=== PATIENT | female | born 1960 | race Two or more races ===

== ENCOUNTER 2016-11-11 08:47 | Outpatient (CLI) | payer BC ==
[2016-11-11 09:50] LABS: BASOPHILS % (AUTO) 0.4 % (0.0-2.0); DIFF TOTAL % 100 %; EOSINOPHILS # (AUTO) 0.2 /CMM (0.0-0.7); EOSINOPHILS % (AUTO) 3.1 % (0.0-6.0); HEMATOCRIT 42 % (33-45); HEMOGLOBIN 13.9 g/dL (11.5-14.8); LYMPHOCYTES # (AUTO) 2.4 /CMM (0.8-4.8); LYMPHOCYTES % (AUTO) 38.5 % (20.0-44.0); MEAN CORPUSCULAR HEMOGLOBIN 29 PG (26.0-33.0); MEAN CORPUSCULAR HGB CONC 34 g/dl (31.0-36.0); MEAN CORPUSCULAR VOLUME 85 fL (82-100); MONOCYTES # (AUTO) 0.5 /CMM (0.1-1.30); MONOCYTES % (AUTO) 7.2 % (2.0-12.0); NEUTROPHILS # (AUTO) 3.2 /CMM (1.8-8.9); NEUTROPHILS % (AUTO) 50.8 % (43.0-81.0); PLATELET COUNT (AUTO) 211 /CMM (150-450); WHITE BLOOD COUNT (AUTO) 6.3 K/uL (4.3-11.0)
[2016-11-11 10:19] LABS: ALBUMIN 3.8 g/dL (3.4-5.0); BILIRUBIN,TOTAL 0.3 mg/dL (0.2-1.0); CALCIUM, SERUM 8.5 mg/dL (8.5-10.1); CREATININE 0.8 mg/dL (0.6-1.3); POTASSIUM 4.3 mmol/L (3.5-5.1); THYROID STIMULATING HORMONE 1.906 uIU/mL (0.358-3.74); TOTAL PROTEIN, SERUM 7.4 g/dL (6.4-8.2)
== END 2016-11-11 23:59 | disposition home or self-care (01) ==
LOC: US 08:47
PROVIDERS: ATTEND Family Medicine
DX: E03.9 Hypothyroidism, unspecified (principal); E55.9 Vitamin D deficiency, unspecified
CPT/HCPCS: 36415; 76536-TC; 80053-TC; 80061-TC; 82306; 84439-TC; 84443-TC; 85025-TC

== ENCOUNTER 2016-11-30 10:22 | Outpatient (CLI) | payer BC ==
[2016-12-01 08:26] LABS: THYROID PEROXIDASE (TPO) AB 10 IU/mL (0-34)
[2016-12-01 09:42] LABS: *THYROGLOBULIN 1.6 IU/mL (0.0-0.9)
== END 2016-11-30 23:59 | disposition home or self-care (01) ==
LOC: LAB 10:22
PROVIDERS: ATTEND Family Medicine
DX: E04.1 Nontoxic single thyroid nodule (principal)
CPT/HCPCS: 36415; 86376

== ENCOUNTER 2017-06-21 10:01 | Outpatient (CLI) | payer BC, OTHER ==
[2017-06-24 00:09] LABS: *NEISSERIA GONORRHOEAE NAA Negative (Negative); CHLAMYDIA TRACHOMATIS NAA Negative (Negative)
== END 2017-06-21 23:59 | disposition home or self-care (01) ==
LOC: LAB 10:01
PROVIDERS: ATTEND Family Medicine
DX: Z11.3 Encounter for screening for infections with a predominantly sexual mode of transmission (principal); Z12.72 Encounter for screening for malignant neoplasm of vagina
CPT/HCPCS: 87491; 87591; 88142

== ENCOUNTER 2019-10-25 11:58 | Outpatient (CLI) | payer BC, OTHER | END 2019-10-25 23:59 | disposition home or self-care (01) | LOC: MRI 11:58 | PROVIDERS: ATTEND Family Medicine | DX: M17.12 Unilateral primary osteoarthritis, left knee (principal); M94.262 Chondromalacia, left knee; M25.762 Osteophyte, left knee | CPT/HCPCS: 73721-TC ==

== ENCOUNTER 2020-05-29 16:20 | Outpatient (CLI) | payer BC, OTHER | END 2020-05-29 23:59 | disposition home or self-care (01) | LOC: LAB 16:20 | PROVIDERS: ATTEND Specialist | DX: Z01.812 Encounter for preprocedural laboratory examination (principal); Z20.828 Contact with and (suspected) exposure to other viral communicable diseases | CPT/HCPCS: 87426; C9803 ==

== ENCOUNTER 2020-06-03 05:05 | Day surgery (SDC) | payer BC, OTHER ==
[2020-05-28 08:38] LABS: BASOPHILS # (AUTO) 0.1 /CMM (0.0-0.2); BASOPHILS % (AUTO) 0.9 % (0.0-2.0); EOSINOPHILS % (AUTO) 2.3 % (0.0-6.0); HEMATOCRIT 43 % (33-45); LYMPHOCYTES # (AUTO) 2.1 /CMM (0.8-4.8); LYMPHOCYTES % (AUTO) 33.1 % (20.0-44.0); MEAN CORPUSCULAR HGB CONC 33 g/dl (31.0-36.0); MEAN CORPUSCULAR VOLUME 88 fL (82-100); MONOCYTES # (AUTO) 0.5 /CMM (0.1-1.30); MONOCYTES % (AUTO) 7.9 % (2.0-12.0); NEUTROPHILS # (AUTO) 3.5 /CMM (1.8-8.9); NEUTROPHILS % (AUTO) 55.8 % (43.0-81.0); PLATELET COUNT (AUTO) 228 /CMM (150-450); WHITE BLOOD COUNT (AUTO) 6.3 K/uL (4.3-11.0)
[2020-05-28 09:01] LABS: APPEARANCE,URINE CLEAR (CLEAR); BILIRUBIN,URINE NEGATIVE (NEGATIVE); BLOOD, URINE TRACE-INTA Ery/uL (NEGATIVE); COLOR,URINE YELLOW (YELLOW); KETONES,URINE NEGATIVE (NEGATIVE); LEUKOCYTE ESTERASE ,URINE NEGATIVE (NEGATIVE); NITRITE, URINE NEGATIVE (NEGATIVE); PROTEIN,URINE NEGATIVE (NEGATIVE); UGLUCOSE NEGATIVE (NEGATIVE); UROBILINOGEN,URINE 0.2 EU/dL (0.2)
[2020-05-28 09:02] LABS: ALBUMIN 3.9 g/dL (3.4-5.0); BILIRUBIN,TOTAL 0.4 mg/dL (0.2-1.0); CALCIUM, SERUM 8.7 mg/dL (8.5-10.1); CREATININE 0.8 mg/dL (0.6-1.3); POTASSIUM 4.7 mmol/L (3.5-5.1); TOTAL PROTEIN, SERUM 7.6 g/dL (6.4-8.2)
[2020-05-28 09:09] LABS: RBC,URINE 0-2 /HPF (0-2)
[2020-05-28 09:10] LABS: BACTERIA,URINE None seen /HPF (None Seen); SQUAMOUS EPITHELIAL CELL,UR Few /HPF (None Seen); WBC,URINE NONE SEEN /HPF (0-3)
[~2020-06-03] VITALS: Ht 157.5 cm; Wt 70.3 kg
--- NOTE | 2020-06-03 05:25 | NUR ---
TONY RECEIVED FROM HOME PATIENT FOR SURGERY TODAY OF LEFT KNEE. A/O X4, LEFT KNEE PAIN ONLY WHEN MOVING. NPO STATUS, FULLY ADMITTED. CONSENTS SIGNED. RIGHT AC 20 GAUGE INSERTED WITH GOOD BLOOD RETURN. PATIENT AWARE OF PROCEDURE, PRE AND POST OP TEACHING DONE. APPEARS TO UNDERSTAND.
[2020-06-03 06:00] VITALS: BP 115/71
--- NOTE | 2020-06-03 06:54 | NUR ---
MSRN SEEN BY ANESTHESIOLOGISTS.
[2020-06-03 06:57] VITALS: BP 115/71
[2020-06-03 07:21] VITALS: BP 115/71
--- NOTE | 2020-06-03 07:42 | NUR ---
RN NOTES PATIENT WAS PICKED UP BY 2 O.R STAFF FOR PROCEDURE, NO SIGNS OF DISTRESS NOTED. CONSENT SIGNED, CHECKLIST DONE.
[2020-06-03] MEDS ORDERED: methylPREDNISolone ACETATE 80 MG/ML VIAL ONE (08:56)
[2020-06-03] MEDS ORDERED: LIDOCAINE HCL/MPF 1% 30 ML VIAL IJ ONE (08:56)
[2020-06-03] MEDS ORDERED: KETOROLAC TROMETHAMINE INJ 30 MG/ML VIAL ONE (09:22)
[2020-06-03] MEDS ORDERED: FENTANYL PF 100MCG/2ML AMPUL ONE (09:23)
--- NOTE | 2020-06-03 10:20 | NUR ---
RN NOTES PATIENT CAME BACK FROM SURGERY VIA HOSPITAL BED, A/O X4. ON OXYGEN 2LPM VIA NC, NO COMPLAIN OF PAIN AT THIS TIME. SAFETY MEASURES IN PLACE, PER MD TO DC WHEN COMFORTABLY. WILL CONTINUE TO MONITOR.
[2020-06-03] MEDS ORDERED: LEVO50TA8 PO (10:35)
[2020-06-03] MEDS ORDERED: IBUP-1957 PO (10:35)
[2020-06-03] MEDS ORDERED: HYDR-3980 PO (10:35)
--- NOTE | 2020-06-03 14:24 | NUR ---
SALES OFFICE ASSISTANT NOTES PATIENT DISCHARGE IN STABLE CONDITION. A/O X4, ABLE TO MAKE NEEDS KNOWN. V/S TAKEN, STABLE AND RECORDED. IV ACCESS REMOVED AND APPLIED PRESSURE DRESSINGS. NAME ARM BAND REMOVED. ALL BELONGINGS SIGNED AND CHECKED. HEALTH TEACHINGS/DISCHARGE INSTRUCTION GIVEN AND VERBALIZED UNDERSTANDING. PATIENT LEFT UNIT VIA WHEELCHAIR WITH NO SIGNS OF DISTRESS. PATIENT ASSISTED TO THE LOBBY AND PICKED UP BY DAUGHTER(NEHAL). CHARGE NURSE AWARE OF DISCHARGED.
== END 2020-06-03 18:00 | disposition home or self-care (01) ==
LOC: DS 05:05 → UNDOADMIN 05:06 → MED 05:06 → UNDODISIN 14:15 → DS 18:00
PROVIDERS: ATTEND Specialist
DX: S83.282A Other tear of lateral meniscus, current injury, left knee, initial encounter (principal); S83.242A Other tear of medial meniscus, current injury, left knee, initial encounter; M94.262 Chondromalacia, left knee; I10 Essential (primary) hypertension; Z79.899 Other long term (current) drug therapy; X58.XXXA Exposure to other specified factors, initial encounter; Y93.89 Activity, other specified; Y92.89 Other specified places as the place of occurrence of the external cause; Y99.8 Other external cause status
CPT/HCPCS: 29880; 36415 ×2; 80053; 81001; 85025; 85730; 86850; 87081; A4217; A6253; J1040; J1885; J3010; J3490; 81000-TC; G0378

== ENCOUNTER 2020-07-24 09:21 | Outpatient (CLI) | payer BC, OTHER ==
[~2020-07-24 09:21] MED LIST: HYDR-3980 PO; IBUP-1957 PO; LEVO50TA8 PO
[2020-07-24 10:09] LABS: APPEARANCE,URINE CLEAR (CLEAR); BILIRUBIN,URINE SMALL (NEGATIVE); BLOOD, URINE NEGATIVE Ery/uL (NEGATIVE); COLOR,URINE RED (YELLOW); KETONES,URINE NEGATIVE (NEGATIVE); LEUKOCYTE ESTERASE ,URINE NEGATIVE (NEGATIVE); NITRITE, URINE POSITIVE (NEGATIVE); PROTEIN,URINE 30 mg/dl (NEGATIVE); UGLUCOSE 250 MG/DL mg/dL (NEGATIVE)
[2020-07-24 13:10] LABS: BACTERIA,URINE Rare /HPF (None Seen); RBC,URINE NONE SEEN /HPF (0-2); WBC,URINE 0-2 /HPF (0-3)
[2020-07-24 13:11] LABS: SQUAMOUS EPITHELIAL CELL,UR Few /HPF (None Seen)
== END 2020-07-24 23:59 | disposition home or self-care (01) ==
LOC: LAB 09:21
PROVIDERS: ATTEND Family Medicine
DX: N39.0 Urinary tract infection, site not specified (principal)
CPT/HCPCS: 81000-TC; 87086-TC

== ENCOUNTER 2020-09-17 09:27 | Outpatient (CLI) | payer BC, OTHER ==
[2020-09-17 11:35] LABS: BASOPHILS % (AUTO) 0.7 % (0.0-2.0); BILIRUBIN,URINE NEGATIVE (NEGATIVE); BLOOD, URINE TRACE-INTA Ery/uL (NEGATIVE); COLOR,URINE YELLOW (YELLOW); EOSINOPHILS % (AUTO) 1.8 % (0.0-6.0); HEMATOCRIT 42 % (33-45); HEMOGLOBIN 13.9 g/dL (11.5-14.8); LEUKOCYTE ESTERASE ,URINE NEGATIVE (NEGATIVE); LYMPHOCYTES # (AUTO) 2.1 /CMM (0.8-4.8); LYMPHOCYTES % (AUTO) 33.8 % (20.0-44.0); MEAN CORPUSCULAR HGB CONC 33 g/dl (31.0-36.0); MEAN CORPUSCULAR VOLUME 88 fL (82-100); MONOCYTES # (AUTO) 0.4 /CMM (0.1-1.30); MONOCYTES % (AUTO) 7.1 % (2.0-12.0); NEUTROPHILS # (AUTO) 3.6 /CMM (1.8-8.9); NEUTROPHILS % (AUTO) 56.6 % (43.0-81.0); NITRITE, URINE NEGATIVE (NEGATIVE); PLATELET COUNT (AUTO) 216 /CMM (150-450); PROTEIN,URINE NEGATIVE (NEGATIVE); RED BLOOD CELL COUNT(AUTO) 4.78 MIL/uL (4.0-5.2); UGLUCOSE NEGATIVE (NEGATIVE); UROBILINOGEN,URINE 0.2 EU/dL (0.2); WHITE BLOOD COUNT (AUTO) 6.3 K/uL (4.3-11.0)
[2020-09-17 11:59] LABS: RBC,URINE 0-2 /HPF (0-2); WBC,URINE NONE SEEN /HPF (0-3)
[2020-09-17 12:00] LABS: BACTERIA,URINE None seen /HPF (None Seen); SQUAMOUS EPITHELIAL CELL,UR Few /HPF (None Seen)
[2020-09-17 12:12] LABS: ALBUMIN 3.9 g/dL (3.4-5.0); BILIRUBIN,TOTAL 0.4 mg/dL (0.2-1.0); CALCIUM, SERUM 8.8 mg/dL (8.5-10.1); CREATININE 0.7 mg/dL (0.6-1.3); POTASSIUM 4.2 mmol/L (3.5-5.1); TOTAL PROTEIN, SERUM 7.5 g/dL (6.4-8.2)
[2020-09-17 12:15] LABS: THYROID STIMULATING HORMONE 1.477 uIU/mL (0.358-3.74)
== END 2020-09-17 23:59 | disposition home or self-care (01) ==
LOC: LAB 09:27
PROVIDERS: ATTEND Family Medicine
DX: E11.9 Type 2 diabetes mellitus without complications (principal); E03.9 Hypothyroidism, unspecified; E78.00 Pure hypercholesterolemia, unspecified; R03.0 Elevated blood-pressure reading, without diagnosis of hypertension; Z79.899 Other long term (current) drug therapy
CPT/HCPCS: 36415; 80053-TC; 80061-TC; 81001; 82306; 84439-TC; 84443-TC; 85025-TC

== ENCOUNTER 2020-11-18 10:01 | Outpatient (CLI) | payer BC, OTHER ==
[2020-11-18 11:32] LABS: COLOR,URINE LIGHT YELLOW (YELLOW); PH,URINE 6.5 (5.0-8.0)
[2020-11-18 11:43] LABS: BILIRUBIN,URINE NEGATIVE (NEGATIVE); PROTEIN,URINE NEGATIVE (NEGATIVE); UGLUCOSE NEGATIVE (NEGATIVE)
[2020-11-18 11:44] LABS: LEUKOCYTE ESTERASE ,URINE NEGATIVE (NEGATIVE); NITRITE, URINE NEGATIVE (NEGATIVE); UROBILINOGEN,URINE 0.2 EU/dL (0.2)
== END 2020-11-18 23:59 | disposition home or self-care (01) ==
LOC: LAB 10:01
PROVIDERS: ATTEND Family Medicine
DX: R31.9 Hematuria, unspecified (principal)
CPT/HCPCS: 87086-TC

== ENCOUNTER 2020-11-26 10:34 | Outpatient (CLI) | payer BC, OTHER ==
[2020-11-26 11:53] LABS: CREATININE 0.8 mg/dL (0.6-1.3)
== END 2020-11-26 23:59 | disposition home or self-care (01) ==
LOC: LAB 10:34
PROVIDERS: ATTEND Family Medicine
DX: M25.561 Pain in right knee (principal); M25.562 Pain in left knee
CPT/HCPCS: 36415; 82565-TC; 84520-TC

== ENCOUNTER 2020-11-27 10:32 | Outpatient (CLI) | payer BC, OTHER ==
[2020-11-27] MEDS ORDERED: GADOTERATE MEGLUMINE 10 MMOL/20 ML VIAL IV ONE (10:33)
== END 2020-11-27 23:59 | disposition home or self-care (01) ==
LOC: MRI 10:32
PROVIDERS: ATTEND Family Medicine
DX: M17.0 Bilateral primary osteoarthritis of knee (principal); M25.462 Effusion, left knee
CPT/HCPCS: 73723 ×2; A9575

== ENCOUNTER 2021-05-06 08:20 | Outpatient (CLI) | payer BC, OTHER ==
[2021-05-06 09:11] LABS: BASOPHILS % (AUTO) 0.8 % (0.0-2.0); HEMATOCRIT 41 % (33-45); HEMOGLOBIN 13.8 g/dL (11.5-14.8); LYMPHOCYTES # (AUTO) 2.3 K/uL (0.8-4.8); LYMPHOCYTES % (AUTO) 40.3 % (20.0-44.0); MEAN CORPUSCULAR HGB CONC 34 g/dl (31.0-36.0); MEAN CORPUSCULAR VOLUME 88 fL (82-100); MONOCYTES # (AUTO) 0.4 K/uL (0.1-1.30); MONOCYTES % (AUTO) 7.3 % (2.0-12.0); NEUTROPHILS # (AUTO) 2.9 K/uL (1.8-8.9); NEUTROPHILS % (AUTO) 49.6 % (43.0-81.0); PLATELET COUNT (AUTO) 218 K/uL (150-450); RED BLOOD CELL COUNT(AUTO) 4.68 MIL/uL (4.0-5.2); WHITE BLOOD COUNT (AUTO) 5.8 K/uL (4.3-11.0)
[2021-05-06 09:14] LABS: BILIRUBIN,URINE NEGATIVE (NEGATIVE); LEUKOCYTE ESTERASE ,URINE NEGATIVE (NEGATIVE); NITRITE, URINE NEGATIVE (NEGATIVE); PROTEIN,URINE NEGATIVE (NEGATIVE); UGLUCOSE NEGATIVE (NEGATIVE); UROBILINOGEN,URINE 0.2 EU/dL (0.2)
[2021-05-06 09:22] LABS: BILIRUBIN,TOTAL 0.4 mg/dL (0.2-1.0); CALCIUM, SERUM 8.4 mg/dL (8.5-10.1); COLOR,URINE STRAW (YELLOW); CREATININE 0.7 mg/dL (0.6-1.3); POTASSIUM 4.1 mmol/L (3.5-5.1); TOTAL PROTEIN, SERUM 7.7 g/dL (6.4-8.2)
[2021-05-06 09:28] LABS: BACTERIA,URINE Rare /HPF (None Seen); RBC,URINE 0-2 /HPF (0-2); SQUAMOUS EPITHELIAL CELL,UR Rare /HPF (None Seen); WBC,URINE 0-2 /HPF (0-3)
[2021-05-06 09:36] LABS: THYROID STIMULATING HORMONE 1.848 uIU/mL (0.358-3.74)
== END 2021-05-06 23:59 | disposition home or self-care (01) ==
LOC: LAB 08:20
PROVIDERS: ATTEND Family Medicine
DX: E03.9 Hypothyroidism, unspecified (principal); Z00.01 Encounter for general adult medical examination with abnormal findings; Z79.899 Other long term (current) drug therapy
CPT/HCPCS: 36415; 80053-TC; 80061-TC; 81001; 82306; 84439-TC; 84443-TC; 85025-TC

== ENCOUNTER 2021-09-06 14:04 | Outpatient (CLI) | payer BC, OTHER ==
[2021-09-06 15:44] LABS: BASOPHILS # (AUTO) 0.1 K/uL (0.0-0.2); BASOPHILS % (AUTO) 0.8 % (0.0-2.0); BILIRUBIN,URINE NEGATIVE (NEGATIVE); COLOR,URINE YELLOW (YELLOW); EOSINOPHILS % (AUTO) 3.4 % (0.0-6.0); HEMATOCRIT 41 % (33-45); HEMOGLOBIN 13.8 g/dL (11.5-14.8); LEUKOCYTE ESTERASE ,URINE NEGATIVE (NEGATIVE); LYMPHOCYTES # (AUTO) 2.7 K/uL (0.8-4.8); LYMPHOCYTES % (AUTO) 35.6 % (20.0-44.0); MEAN CORPUSCULAR HGB CONC 34 g/dl (31.0-36.0); MEAN CORPUSCULAR VOLUME 88 fL (82-100); MONOCYTES # (AUTO) 0.5 K/uL (0.1-1.30); MONOCYTES % (AUTO) 6.9 % (2.0-12.0); NEUTROPHILS # (AUTO) 4.1 K/uL (1.8-8.9); NEUTROPHILS % (AUTO) 53.3 % (43.0-81.0); NITRITE, URINE NEGATIVE (NEGATIVE); PH,URINE 6.5 (5.0-8.0); PLATELET COUNT (AUTO) 220 K/uL (150-450); PROTEIN,URINE NEGATIVE (NEGATIVE); RED BLOOD CELL COUNT(AUTO) 4.67 MIL/uL (4.0-5.2); UGLUCOSE NEGATIVE (NEGATIVE); UROBILINOGEN,URINE 0.2 EU/dL (0.2); WHITE BLOOD COUNT (AUTO) 7.7 K/uL (4.3-11.0)
[2021-09-06 16:12] LABS: ALBUMIN 3.9 g/dL (3.4-5.0); BILIRUBIN,TOTAL 0.3 mg/dL (0.2-1.0); CALCIUM, SERUM 8.5 mg/dL (8.5-10.1); CREATININE 0.8 mg/dL (0.6-1.3); POTASSIUM 3.8 mmol/L (3.5-5.1); TOTAL PROTEIN, SERUM 7.4 g/dL (6.4-8.2)
[2021-09-06 16:33] LABS: BACTERIA,URINE None seen /HPF (None Seen); MUCUS,URINE Few /LPF (None Seen); RBC,URINE 0-2 /HPF (0-2); SQUAMOUS EPITHELIAL CELL,UR 0-2 /HPF (None Seen); WBC,URINE 0-2 /HPF (0-3)
== END 2021-09-06 23:59 | disposition home or self-care (01) ==
LOC: LAB 14:04
PROVIDERS: ATTEND Specialist
DX: Z01.818 Encounter for other preprocedural examination (principal); Z20.822 Contact with and (suspected) exposure to COVID-19; Z51.81 Encounter for therapeutic drug level monitoring
CPT/HCPCS: 36415; 71046; 80053; 81001; 85025; 85730; 87086; C9803; U0003

== ENCOUNTER 2021-09-10 09:46 | Day surgery (SDC) | payer BC, OTHER ==
--- NOTE | 2021-09-10 05:50 | NUR ---
MS RN ADMITTING NOTES PATIENT ARRIVED TO THE UNIT AT APPROXIMATELY 0550. PATIENT WAS ABLE TO WALK INDEPENDENTLY TO HER ROOM. PATIENT WAS ORIENTED TO THE STAFF AND ROOM. PATIENT'S ALERT AND ORIENTED X4. PATIENT'S STABLE ON ROOM AIR. IV ACCESS WILL BE PLACED IN SURGERY. PATIENT'S IN NO ACUTE DISTRESS AT THIS TIME. SAFETY MEASURES IN PLACE: BED LOCKED, SIDE RAILS UPX2, AND CALL LIGHT WITHIN REACH OF THE PATIENT.
--- NOTE | 2021-09-10 06:32 | NUR ---
MS RN NOTES PATIENT WAS TAKEN INTO SURGERY FROM THE UNIT AT APPROXIMATELY THIS TIME. PATIENT WAS IN NO ACUTE DISTRESS AT THE TIME OF TRANSFER.
--- NOTE | 2021-09-10 06:57 | NUR ---
MS RN CLOSING NOTES PATIENT IS CURRENTLY IN SURGERY AT THIS TIME. PATIENT'S ALERT AND ORIENTED X4. PATIENT'S STABLE ON ROOM AIR. IV ACCESS WILL BE PLACED IN SURGERY. PATIENT WAS IN NO ACUTE DISTRESS AT THE TIME OF TRANSFER FOR SURGERY. SAFETY MEASURES IN PLACE: BED LOCKED, SIDE RAILS UP X2, AND CALL LIGHT WITHIN REACH OF THE PATIENT. WILL ENDORSE THE ADMISSION ASSESSMENT AND CARE TO THE DAY SHIFT NURSE.
--- NOTE | 2021-09-10 08:20 | NUR ---
RN NOTES RECEIVED REPORT FROM OR FROM FRANCIS AT 0820 AM.
--- NOTE | 2021-09-10 08:50 | NUR ---
RN OPENING NOTES RECEIVED PATIENT FROM OR S/P RIGHT KNEE ARTHROPLASTY WITH HOSPITAL BED, ONYEDA OR NURSE PRESENT. SHE CHECKED VITAL SIGNS, IT WAS WITHIN NORMAL RANGES. QS=413/77, P=75, O2=99% ROOM AIR, T=99.6. PATIENT ALERT AND ORIENTED TIMES 4. NO PAIN NOTED. NO RESPIRATORY DISTRESS NOTED. NO S/S OF BLEEDING OR DISCOMFORT NOTED. BED LOCKED IN THE LOWEST POSITION. CALL LIGHT AND TABLE WITHIN REACH. ICE PACK ON THE SURGERY SITE. DAUGHTER CALLED GOT REPORT FROM PATIENT. ALL NEEDS ATTENDED. WILL CONTINUE TO MONITOR.
[~2021-09-10 09:46] MED LIST changes: +FAMOTIDINE/PF INJ 20 MG/2 ML VIAL IV ONE; +FENTANYL PF 250MCG/5ML AMPUL ONE; +MIDAZOLAM HCL 2 MG/2ML VIAL ONE
--- NOTE | 2021-09-10 11:40 | NUR ---
CLIP LOADING MACHINE ADJUSTER NOTES DISCHARGE PATIENT IN GOOD CONDITION, VITAL SIGNS NORMAL:HO=850/59, P=82, RR=18, T=98.5. NO PAIN NOTED, NO RESPIRATORY DISTRESS NOTED.PATIENT VERBALIZED UNDERSTANDING FOR INSTRUCTIONS. IV ACCESS REMOVED . NO BLEEDING NOTED. COVERED WITH DRY DRESSING. BELONGINGS ACCOUNTED AND SIGNED FOR. ARM BAND REMOVED. DUNIA WHEELED THE PATIENT TO THE LOBBY . PATIENT LEFT UNIT AT 1140 IN STABLE CONDITION. MD AND CHARGE NURSE AWARE OF THE DISCHARGE.
== END 2021-09-10 23:59 | disposition home or self-care (01) ==
LOC: DS 09:46 → UNDODISIN 11:39 → DS 23:59
PROVIDERS: ATTEND Specialist
DX: S83.231A Complex tear of medial meniscus, current injury, right knee, initial encounter (principal); M94.261 Chondromalacia, right knee; M23.41 Loose body in knee, right knee; I10 Essential (primary) hypertension; E11.9 Type 2 diabetes mellitus without complications; E03.9 Hypothyroidism, unspecified; E78.5 Hyperlipidemia, unspecified; E66.01 Morbid (severe) obesity due to excess calories; Z98.890 Other specified postprocedural states; Z79.899 Other long term (current) drug therapy
CPT/HCPCS: 20610; 29881; 87081; A4217; A6253; J0690; J2250; J2405; J2704; J2765; J3010; J3490 ×2; J7030; G0378

== ENCOUNTER 2024-09-26 07:41 | Day surgery (SDC) | payer BC ==
[~2024-09-26 07:41] MED LIST changes: -FAMOTIDINE/PF INJ 20 MG/2 ML VIAL IV ONE; -FENTANYL PF 250MCG/5ML AMPUL ONE; -MIDAZOLAM HCL 2 MG/2ML VIAL ONE
[2024-09-26] MEDS ORDERED: BACITRACIN ZINC OINT (15 GM) 15 GM TUBE TP ONE (08:46)
[2024-09-26] MEDS ORDERED: BUPIVACAINE 0.5 % PF 150 MG/30 ML VIAL ONE (08:46)
[2024-09-26] MEDS ORDERED: VANCOMYCIN 1 GM VIAL ONE (08:46)
[2024-09-26] MEDS ORDERED: LIDOCAINE 1%-EPI 1:100,000 20 ML VIAL ONE (08:46)
== END 2024-09-26 11:00 | disposition home or self-care (01) ==
LOC: DS 07:41
PROVIDERS: ATTEND Surgery
DX: R22.41 Localized swelling, mass and lump, right lower limb (principal); I83.91 Asymptomatic varicose veins of right lower extremity; I10 Essential (primary) hypertension; E06.3 Autoimmune thyroiditis; E78.00 Pure hypercholesterolemia, unspecified; E11.9 Type 2 diabetes mellitus without complications; Z88.2 Allergy status to sulfonamides; Z79.890 Hormone replacement therapy; Z79.899 Other long term (current) drug therapy; Z90.89 Acquired absence of other organs; Z98.891 History of uterine scar from previous surgery; Z98.890 Other specified postprocedural states
CPT/HCPCS: 27337; 88305; A6253; J0690; J2704; J3490; J7030; J3370